=== PATIENT | male | born 1960 | race Caucasian/White ===

== ENCOUNTER 2018-04-15 17:25 | Inpatient (IN) | payer OTHER ==
[~2018-04-15] VITALS: Ht 177.8 cm; Wt 102.9 kg
[2018-04-15] MEDS ORDERED: hydrALAzine 20 MG/ML, 1ML IVPush PRN (22:00)
[2018-04-15] MEDS ORDERED: ACETAMINOPHEN 325 MG TABLET PO PRN (22:00)
[2018-04-15] MEDS ORDERED: DOCUSATE 100 MG CAPSULE PO PRN (22:00)
[2018-04-15] MEDS ORDERED: ONDANSETRON ODT 4 MG PO PRN (22:00)
[2018-04-15 22:16] VITALS: BP 122/70
[2018-04-15] MEDS ORDERED: OMEPRAZOLE 20 MG CAPSULE.DR PO SCH (22:30)
[2018-04-15] MEDS ORDERED: LEVETIRACETAM 500 MG TABLET PO SCH (22:30)
[2018-04-15] MEDS ORDERED: INSULIN LISPRO 100 UNITS/ML, PEN SQ-INSULIN SCH (22:30)
[2018-04-16] MEDS ORDERED: LEVETIRACETAM 100 MG/ML, 5ML IV SCH
[2018-04-16] MEDS: LOVASTATIN 40 MG TABLET PO SCH ×2 (00:19→22:27)
[2018-04-16 01:18] VITALS: BP 123/75
[2018-04-16] MEDS: LEVETIRACETAM 500 MG in SODIUM CHLORIDE 0.9% 100 ML IV SCH ×2 (01:49→12:42)
[2018-04-16] MEDS ORDERED: HYDR-3245 PO (03:50)
[2018-04-16] MEDS ORDERED: LOVA40TA2 PO (03:50)
[2018-04-16] MEDS ORDERED: ASPI-621 PO (03:50)
[2018-04-16] MEDS ORDERED: ISOS60TA36 PO (03:50)
[2018-04-16] MEDS: ASPIRIN 81 MG TABLET EC PO SCH (05:26)
[2018-04-16] MEDS ORDERED: PROMETHAZINE 25 MG/ML, 1ML IM PRN (05:30)
[2018-04-16 06:02] LABS: MEAN CORPUSCULAR HEMOGLOBIN 37.1 pg (27.5-34.5); MEAN CORPUSCULAR HGB CONC 34.8 g/dL (33.2-36.2); MEAN CORPUSCULAR VOLUME 106.8 fL (81-97); RED BLOOD COUNT 2.43 x10^6/uL (4.38-5.82); RED CELL DISTRIBUTION WIDTH 14.5 % (9.4-14.8)
[2018-04-16 06:03] LABS: ANION GAP 14 mmol/L (5-15); CALCIUM 8.3 mg/dL (8.5-10.1); CHLORIDE 123 mmol/L (98-107)
[2018-04-16 06:05] LABS: CREATININE 1.91 mg/dL (0.7-1.3)
[2018-04-16 06:15] LABS: CLOSTRIDIUM DIFFICILE ANTIGEN POSITIVE; CLOSTRIDIUM DIFFICILE TOXIN NEGATIVE (Negative)
[2018-04-16 06:34] LABS: MEAN PLATELET VOLUME 10.4 fL (7.4-10.4); PLATELET COUNT 77 x10^3/uL (130-400)
[2018-04-16 06:51] LABS: MD YES
[2018-04-16 06:58] LABS: <PLATELET ESTIMATE> DECREASED; <PLT MORPHOLOGY> NORMAL PLT MORPH; BASOS#(MANUAL) 0.06 x10^3/uL (0-0.1); BASOS% (MANUAL) 1 % (0-1); LYMPH#(MANUAL) 0.84 x10^3/uL (1-3.4); LYMPHS% (MANUAL) 14 % (22-44); MONOS#(MANUAL) 0.12 x10^3/uL (0.3-2.7); MONOS% (MANUAL) 2 % (2-9); SEG#(MANUAL) 4.98 x10^3/uL (1.8-6.8); SEGS% (MANUAL) 83 % (42-75)
[2018-04-16] MEDS: POTASSIUM CHLORIDE 20 MEQ in DEXTROSE 5% 1,000 ML IV SCH ×3 (07:00→10:52)
[2018-04-16 07:15] VITALS: BP 113/72
[2018-04-16] MEDS: PANTOPRAZOLE 40 MG IV IVPush SCH ×2 (08:09→08:46)
[2018-04-16] MEDS: INSULIN GLARGINE 100 UNITS/ML, PEN SQ-INSULIN SCH (08:10)
[2018-04-16] MEDS: ISOSORBIDE MONONITRATE ER 60 MG TABLET PO SCH (08:10)
[2018-04-16] MEDS: INSULIN LISPRO 100 UNITS/ML, PEN SQ-INSULIN SCH ×3 (08:10→22:35)
[2018-04-16 15:48] VITALS: BP 126/72
[2018-04-16 19:02] VITALS: BP 131/77
[2018-04-16] MEDS ORDERED: LORazepam 2 MG/ML, 1ML IVPush ONE (21:00)
[2018-04-17 00:20] VITALS: BP 136/64
[2018-04-17] MEDS: LEVETIRACETAM 500 MG in SODIUM CHLORIDE 0.9% 100 ML IV SCH ×2 (00:52→13:58)
[2018-04-17] MEDS: INSULIN LISPRO 100 UNITS/ML, PEN SQ-INSULIN SCH ×4 (03:21→21:44)
[2018-04-17] MEDS: ASPIRIN 81 MG TABLET EC PO SCH (05:57)
[2018-04-17 06:37] LABS: ALBUMIN 2.6 g/dL (3.4-5.0); ANION GAP 10 mmol/L (5-15); CALCIUM 8.5 mg/dL (8.5-10.1); CHLORIDE 125 mmol/L (98-107); MEAN CORPUSCULAR HEMOGLOBIN 37.2 pg (27.5-34.5); MEAN CORPUSCULAR HGB CONC 34.7 g/dL (33.2-36.2); MEAN CORPUSCULAR VOLUME 107.2 fL (81-97); MEAN PLATELET VOLUME 10.3 fL (7.4-10.4); PLATELET COUNT 93 x10^3/uL (130-400); RED BLOOD COUNT 2.33 x10^6/uL (4.38-5.82); RED CELL DISTRIBUTION WIDTH 14.6 % (9.4-14.8)
[2018-04-17 06:43] VITALS: BP 127/76
[2018-04-17 06:58] LABS: MD YES
[2018-04-17 07:02] LABS: LYMPH#(MANUAL) 1.34 x10^3/uL (1-3.4); LYMPHS% (MANUAL) 21 % (22-44); METAMYELOCYTES# (MANUAL) 0.06 x10^3/uL (0-0); METAMYELOCYTES% (MANUAL) 1 % (0-1); MONOS#(MANUAL) 0.19 x10^3/uL (0.3-2.7); MONOS% (MANUAL) 3 % (2-9); SEG#(MANUAL) 4.74 x10^3/uL (1.8-6.8); SEGS% (MANUAL) 74 % (42-75)
[2018-04-17 07:04] LABS: REACTIVE LYMPHS # (MANUAL) 0.06 x10^3/uL (0-0); REACTIVE LYMPHS % (MANUAL) 1 % (0-0)
[2018-04-17 07:05] LABS: <PLATELET ESTIMATE> DECREASED; <PLT MORPHOLOGY> NORMAL PLT MORPH
[2018-04-17 07:06] LABS: ALANINE AMINOTRANSFERASE 46 U/L (12-78); ALKALINE PHOSPHATASE 136 U/L (45-117); BILIRUBIN,TOTAL 1.7 mg/dL (0.2-1.0); CREATININE 1.62 mg/dL (0.7-1.3); TOTAL PROTEIN 6.4 g/dL (6.4-8.2)
[2018-04-17] MEDS ORDERED: ERGOCALCIFEROL 50,000 UNIT CAPSULE PO SCH (07:30)
[2018-04-17] MEDS: INSULIN GLARGINE 100 UNITS/ML, PEN SQ-INSULIN SCH (08:00)
[2018-04-17] MEDS: ISOSORBIDE MONONITRATE ER 60 MG TABLET PO SCH (08:29)
[2018-04-17] MEDS: PANTOPRAZOLE 40 MG IV IVPush SCH (09:00)
[2018-04-17 12:40] VITALS: BP 126/65
[2018-04-17 14:43] LABS: MICROSCOPIC AUTO
[2018-04-17 14:47] LABS: CULTURE INDICATED? YES
[2018-04-17 15:27] LABS: OSMOLALITY,URINE 390 mOsm/kg (500-850)
[2018-04-17 15:36] LABS: CHLORIDE,URINE RANDOM 69 mmol/L; POTASSIUM,URINE RANDOM 16 mmol/L; SODIUM,URINE RANDOM 71 mmol/L
[2018-04-17 19:20] VITALS: BP 96/62
[2018-04-17] MEDS: LOVASTATIN 40 MG TABLET PO SCH (21:43)
[2018-04-17] MEDS: OXYcodone IR 5MG TABLET PO PRN (22:07)
[2018-04-18] MEDS: LOPERAMIDE 2 MG CAPSULE PO PRN ×2 (01:11→21:10)
[2018-04-18] MEDS: LEVETIRACETAM 500 MG in SODIUM CHLORIDE 0.9% 100 ML IV SCH ×2 (01:11→14:10)
[2018-04-18 03:01] VITALS: BP 130/82
[2018-04-18] MEDS: INSULIN LISPRO 100 UNITS/ML, PEN SQ-INSULIN SCH ×4 (03:04→21:10)
[2018-04-18 04:48] LABS: ANION GAP 15 mmol/L (5-15); CALCIUM 7.8 mg/dL (8.5-10.1); CHLORIDE 117 mmol/L (98-107); CREATININE 1.59 mg/dL (0.7-1.3)
[2018-04-18 04:56] LABS: MEAN CORPUSCULAR HEMOGLOBIN 36.8 pg (27.5-34.5); MEAN CORPUSCULAR HGB CONC 34.6 g/dL (33.2-36.2); MEAN CORPUSCULAR VOLUME 106.3 fL (81-97); MEAN PLATELET VOLUME 10.6 fL (7.4-10.4); PLATELET COUNT 92 x10^3/uL (130-400); RED BLOOD COUNT 2.24 x10^6/uL (4.38-5.82); RED CELL DISTRIBUTION WIDTH 14.4 % (9.4-14.8)
[2018-04-18 05:57] LABS: BASOPHILS # (AUTO) 0.04 x10^3/uL (0-0.1); BASOPHILS % (AUTO) 1 % (0-1); EOSINOPHILS # (AUTO) 0.04 x10^3/uL (0-0.4); EOSINOPHILS % (AUTO) 1 % (1-7); LYMPHOCYTES # (AUTO) 0.97 x10^3/uL (1-3.4); LYMPHOCYTES % (AUTO) 15 % (22-44); MD SCAN; MONOCYTES # (AUTO) 0.39 x10^3/uL (0.2-0.8); MONOCYTES % (AUTO) 6 % (2-9); NEUTROPHILS # (AUTO) 4.88 x10^3/uL (1.8-6.8); NEUTROPHILS % (AUTO) 77 % (42-75)
[2018-04-18 06:25] VITALS: BP 128/75
[2018-04-18] MEDS: PANTOPRAZOLE 40 MG IV IVPush SCH (08:45)
[2018-04-18] MEDS: ISOSORBIDE MONONITRATE ER 60 MG TABLET PO SCH (08:45)
[2018-04-18] MEDS: ASPIRIN 81 MG TABLET EC PO SCH (08:45)
[2018-04-18] MEDS: INSULIN GLARGINE 100 UNITS/ML, PEN SQ-INSULIN SCH (08:46)
[2018-04-18] MEDS ORDERED: POTASSIUM CHLORIDE 20 MEQ TAB.ER.PRT PO ONE (09:00)
[2018-04-18] MEDS ORDERED: MAGNESIUM SULFATE PMX 2GM/50ML 50 ML IV ONE (10:30)
[2018-04-18] MEDS: OXYcodone IR 5MG TABLET PO PRN ×2 (10:38→21:09)
[2018-04-18 12:14] VITALS: BP 116/67
[2018-04-18 19:31] VITALS: BP 118/74
[2018-04-18] MEDS: MAGNESIUM CHLORIDE 64 MG TABLET.DR PO SCH (21:09)
[2018-04-18] MEDS: LOVASTATIN 40 MG TABLET PO SCH (21:10)
[2018-04-19] MEDS: LEVETIRACETAM 500 MG in SODIUM CHLORIDE 0.9% 100 ML IV SCH ×2 (01:05→13:11)
[2018-04-19 02:00] VITALS: BP 101/66
[2018-04-19] MEDS: INSULIN LISPRO 100 UNITS/ML, PEN SQ-INSULIN SCH ×4 (03:00→21:05)
[2018-04-19 06:10] LABS: ANION GAP 12 mmol/L (5-15); CALCIUM 8.1 mg/dL (8.5-10.1); CHLORIDE 119 mmol/L (98-107)
[2018-04-19 06:12] LABS: CREATININE 1.43 mg/dL (0.7-1.3)
[2018-04-19 06:54] VITALS: BP 122/69
[2018-04-19] MEDS ORDERED: POTASSIUM CHLORIDE 40 MEQ in SODIUM CHLORIDE 0.9% 500 ML IV ONE (07:30)
[2018-04-19] MEDS: CEFTRIAXONE PMX 2GM/50ML 50 ML IV SCH (08:14)
[2018-04-19] MEDS: ASPIRIN 81 MG TABLET EC PO SCH (08:56)
[2018-04-19] MEDS: MAGNESIUM CHLORIDE 64 MG TABLET.DR PO SCH ×2 (08:56→21:04)
[2018-04-19] MEDS: INSULIN GLARGINE 100 UNITS/ML, PEN SQ-INSULIN SCH (08:57)
[2018-04-19] MEDS: PANTOPRAZOLE 40 MG IV IVPush SCH (08:57)
[2018-04-19] MEDS: ISOSORBIDE MONONITRATE ER 60 MG TABLET PO SCH (08:57)
[2018-04-19 12:29] VITALS: BP 117/68
[2018-04-19] MEDS: OXYcodone IR 5MG TABLET PO PRN (14:54)
[2018-04-19 19:17] VITALS: BP 122/73
[2018-04-19] MEDS: LOVASTATIN 40 MG TABLET PO SCH (21:04)
[2018-04-20] MEDS: LEVETIRACETAM 500 MG in SODIUM CHLORIDE 0.9% 100 ML IV SCH ×3 (00:27→23:50)
[2018-04-20 01:08] VITALS: BP 100/62
[2018-04-20] MEDS: INSULIN LISPRO 100 UNITS/ML, PEN SQ-INSULIN SCH ×4 (03:48→21:06)
[2018-04-20 04:56] LABS: MEAN CORPUSCULAR HEMOGLOBIN 35.6 pg (27.5-34.5); MEAN CORPUSCULAR HGB CONC 34.4 g/dL (33.2-36.2); MEAN CORPUSCULAR VOLUME 103.5 fL (81-97); MEAN PLATELET VOLUME 9.9 fL (7.4-10.4); PLATELET COUNT 96 x10^3/uL (130-400); RED BLOOD COUNT 2.25 x10^6/uL (4.38-5.82); RED CELL DISTRIBUTION WIDTH 14.2 % (9.4-14.8)
[2018-04-20 05:04] LABS: CHLORIDE 114 mmol/L (98-107)
[2018-04-20 05:08] LABS: ANION GAP 10 mmol/L (5-15); CALCIUM 8.1 mg/dL (8.5-10.1); CREATININE 1.28 mg/dL (0.7-1.3)
[2018-04-20 05:59] LABS: BASOPHILS # (AUTO) 0.02 x10^3/uL (0-0.1); BASOPHILS % (AUTO) 1 % (0-1); EOSINOPHILS # (AUTO) 0.04 x10^3/uL (0-0.4); EOSINOPHILS % (AUTO) 1 % (1-7); LYMPHOCYTES # (AUTO) 0.97 x10^3/uL (1-3.4); LYMPHOCYTES % (AUTO) 22 % (22-44); MD SCAN; MONOCYTES # (AUTO) 0.36 x10^3/uL (0.2-0.8); MONOCYTES % (AUTO) 8 % (2-9); NEUTROPHILS # (AUTO) 2.99 x10^3/uL (1.8-6.8); NEUTROPHILS % (AUTO) 68 % (42-75)
[2018-04-20 07:23] VITALS: BP 130/75
[2018-04-20] MEDS: CEFTRIAXONE PMX 2GM/50ML 50 ML IV SCH (08:39)
[2018-04-20] MEDS: INSULIN GLARGINE 100 UNITS/ML, PEN SQ-INSULIN SCH (08:40)
[2018-04-20] MEDS: MAGNESIUM CHLORIDE 64 MG TABLET.DR PO SCH ×2 (08:40→20:39)
[2018-04-20] MEDS: ISOSORBIDE MONONITRATE ER 60 MG TABLET PO SCH (08:41)
[2018-04-20] MEDS: ASPIRIN 81 MG TABLET EC PO SCH (08:41)
[2018-04-20] MEDS: PANTOPRAZOLE 40 MG IV IVPush SCH (08:41)
[2018-04-20] MEDS ORDERED: MAGNESIUM SULF. PMX 20GM/500ML 500 ML IV PRN (10:00)
[2018-04-20 12:50] VITALS: BP 121/72
[2018-04-20] MEDS: POTASSIUM CHLORIDE 20 MEQ TAB.ER.PRT PO SCH (16:45)
[2018-04-20 20:01] VITALS: BP 151/78
[2018-04-20] MEDS: LOVASTATIN 40 MG TABLET PO SCH (20:39)
[2018-04-20] MEDS ORDERED: DIPHENHYDRAMINE 25 MG CAPSULE PO PRN (23:30)
[2018-04-21 01:14] VITALS: BP 130/67
[2018-04-21] MEDS: INSULIN LISPRO 100 UNITS/ML, PEN SQ-INSULIN SCH ×3 (03:00→15:41)
[2018-04-21 05:43] LABS: ALBUMIN 2.3 g/dL (3.4-5.0); ANION GAP 11 mmol/L (5-15); CALCIUM 7.9 mg/dL (8.5-10.1); CHLORIDE 114 mmol/L (98-107); CREATININE 1.23 mg/dL (0.7-1.3)
[2018-04-21 07:26] VITALS: BP 117/79
[2018-04-21] MEDS: CEFTRIAXONE PMX 2GM/50ML 50 ML IV SCH ×2 (08:00→08:14)
[2018-04-21] MEDS: INSULIN GLARGINE 100 UNITS/ML, PEN SQ-INSULIN SCH (08:14)
[2018-04-21] MEDS: POTASSIUM CHLORIDE 20 MEQ TAB.ER.PRT PO SCH (08:14)
[2018-04-21] MEDS: MAGNESIUM CHLORIDE 64 MG TABLET.DR PO SCH (08:14)
[2018-04-21] MEDS: PANTOPRAZOLE 40 MG IV IVPush SCH ×2 (08:14→09:00)
[2018-04-21] MEDS: ASPIRIN 81 MG TABLET EC PO SCH (08:14)
[2018-04-21] MEDS: ISOSORBIDE MONONITRATE ER 60 MG TABLET PO SCH (08:14)
[2018-04-21] MEDS ORDERED: SULFAMETH./TRIMETHOPRIM DS 800MG/160MG TABLET PO SCH (11:30)
[2018-04-21 12:52] VITALS: BP 115/77
[2018-04-21] MEDS ORDERED: LEVE500T53 PO (14:28)
[2018-04-21] MEDS ORDERED: PANT40TA5 PO (14:28)
[2018-04-21] MEDS ORDERED: INSU100I13 SQ-INSULIN (14:28)
[2018-04-21] MEDS ORDERED: SULF-169 PO (14:28)
[2018-04-21] MEDS ORDERED: ERGO500017 PO (14:28)
[2018-04-21] MEDS ORDERED: LEVETIRACETAM 500 MG TABLET PO SCH (21:00)
[2018-04-22] MEDS ORDERED: PANTOPROZOLE 40MG TABLET PO SCH (06:00)
== END 2018-04-21 16:36 | disposition home or self-care (01) | DRG 377 ==
LOC: 4EST 20:53 → DCLOUNGE 04-21 16:22
PROVIDERS: ADMIT Hospitalist; ATTEND Hospitalist
DX: K92.2 Gastrointestinal hemorrhage, unspecified (principal); E43 Unspecified severe protein-calorie malnutrition; G93.41 Metabolic encephalopathy; J69.0 Pneumonitis due to inhalation of food and vomit; D62 Acute posthemorrhagic anemia; E23.2 Diabetes insipidus; N17.9 Acute kidney failure, unspecified; N39.0 Urinary tract infection, site not specified; E83.39 Other disorders of phosphorus metabolism; E83.42 Hypomagnesemia; E87.6 Hypokalemia; S06.6X9D Traumatic subarachnoid hemorrhage with loss of consciousness of unspecified duration, subsequent encounter; Z68.32 Body mass index [BMI] 32.0-32.9, adult
CPT/HCPCS: 36415; 80048; 80053; 81001; 82040; 82306; 82436; 82607; 82962; 83735; 83930; 83935; 84100; 84133; 84300; 84443; 84588; 85025; 87077; 87086; 87186; 87324; 87493; G0378; J0696; J1953; J2550; J3480; J7070; Q0162; 92523-GN; C9113; J1815; J2060; J3475; J7040; Q0163